=== PATIENT | male | born 2000 | race Caucasian/White ===

== ENCOUNTER 2021-10-15 11:26 | Emergency (ER) | payer OTHER, SELFPAY ==
[2021-10-15 11:35] VITALS: BP 116/72; PULSE 73; RESP 18; TEMP 36.2; O2SAT 99; BMI 31.9
--- NOTE | 2021-10-15 11:52 | CRLHL7_ITS ---
For Patients: As a result of the Cures Act, medical imaging exams and procedure reports are released immediately into your electronic medical record. You may view this report before your referring provider. If you have questions, please contact your health care provider. Indication: Pain over 4th metacarpal, trauma. Technique: Right hand 3 views. Comparison: None. Findings: There is an acute minimally displaced oblique fracture of the 4th metacarpal shaft. No definite extension to the articular surface. No dislocation. Joint spaces are preserved. Mild soft tissue swelling in the dorsal aspect of the hand. Impression: Acute minimally displaced oblique fracture of the 4th metacarpal shaft. Dictated by Aruna Lyn MD @ 10/15/2021 12:28:06 PM (Electronically Signed)
--- NOTE | 2021-10-15 12:56 | ED.GENADULT ---
HPI - General Adult General Chief complaint: Extremity Pain/Injury, Upper Stated complaint: Hand caught in drill, possibly broken Time Seen by Provider: 10/15/21 11:27 Source: patient Mode of arrival: ambulatory Limitations: no limitations History of Present Illness HPI narrative: 21-year-old male coming in today complaining of hand pain. Patient's hand was caught in a drill yesterday, the hand twisted and he felt immediate pain in the mid center of the hand. Denies any other injury. Related Data Home Medications Medication Instructions Recorded Confirmed cephalexin 500 mg capsule mg PO QID 09/07/21 09/07/21 None 10/15/21 Allergies Allergy/AdvReac Type Severity Reaction Status Date / Time No Known Allergies Allergy Unverified 10/15/21 11:40 Review of Systems Status of ROS: Reports: 6 or more systems reviewed and unremarkable except as noted in History and below [facility] Family History Paternal Grandmother Diabetes Maternal Grandmother Diabetes Social History Smoking Status: Never smoker Do you use any of these nicotine containing products: E-Cigarettes Second hand tobacco smoke exposure: No How often do you have a drink containing alcohol: 2-4 times a month How often do you have six or more drinks on one occasion: Less than monthly AUDIT-C Alcohol total score: 3 Non-prescribed substance use: denies use service: No Exam Narrative: Exam Narrative: Well-nourished well-developed patient in no acute distress. Alert and oriented. Answers questions appropriately. Mood and affect are appropriate. Thoughts are goal oriented and rational. No tangential or magical thinking noted. Patient speaks in full sentences without needing to catch their breath. HEENT: Normocephalic atraumatic. Pupils are equally round reactive to light. Extraocular muscles are intact. Conjunctivae are moist without any icterus noted. Patient's right hand has swelling on the dorsal surface. Volar surface appears normal. There is no redness, ecchymosis or broken skin. He has normal radial pulse. Full range of motion with all the fingers with extension and flexion. Full range of motion at the wrist however that causes discomfort in the center of the hand. He does have tenderness to palpation over the 4th metacarpal. Const: Vital Signs, click to edit/add: Vital Signs - 24 hr 10/15/21 11:35 Temperature 97.1 F L Pulse Rate [Right Pulse Oximeter] 73 Respiratory Rate 18 Blood Pressure [Le ft Upper Arm] 116/72 Pulse Oximetry 99 Oxygen Delivery Me thod Room Air Course Course Hospital Course: X-ray was obtained of the hand does show a fracture of the 4th metacarpal. Therefore patient was placed in a dorsal volar splint in the ED today. Vital Signs Vital signs: Initial Vital Signs Temperature 97.1 F L 10/15/21 11:35 Temperature Source Temporal Artery Scan 10/15/21 11:35 Pulse Rate 73 10/15/21 11:35 Pulse Rhythm 10/15/21 11:35 Respiratory Rate 18 10/15/21 11:35 Blood Pressure 116/72 10/15/21 11:35 Blood Pressure Mean 86 10/15/21 11:35 Blood Pressure Position Sitting 10/15/21 11:35 Pulse Oximetry 99 10/15/21 11:35 Oxygen Delivery Method 10/15/21 11:35 Vital Signs Temperature 97.1 F L 10/15/21 11:35 Pulse Rate 73 10/15/21 11:35 Respiratory Rate 18 10/15/21 11:35 Blood Pressure 116/72 10/15/21 11:35 Pulse Oximetry 99 10/15/21 11:35 Oxygen Delivery Method 10/15/21 11:35 Temperature 97.1 F L 10/15/21 11:35 Pulse Rate 73 10/15/21 11:35 Respiratory Rate 18 10/15/21 11:35 Blood Pressure 116/72 10/15/21 11:35 Pulse Oximetry 99 10/15/21 11:35 Oxygen Delivery Method 10/15/21 11:35 Medical Decision Making MDM Narrative Medical decision making narrative: 21-year-old male with a fracture of the 4th metacarpal. Splint was placed. He will be given a sling to use for comfort. He will follow-up with orthopedics next week for casting. This was not done today secondary to the amount of swelling present. Imaging Data Hand x-ray: Attestation: I have reviewed the pertinent imaging results. My impression: Fracture of the 4th metacarpal shaft Radiologist's impression: There is an acute minimally displaced oblique fracture of the 4th metacarpal shaft. No definite extension to the articular surface. No dislocation. Joint spaces are preserved. Mild soft tissue swelling in the dorsal aspect of the hand. Impression: Acute minimally displaced oblique fracture of the 4th metacarpal shaft. Discharge Plan Discharge Clinical Impression: Fracture of fourth metacarpal bone Patient Disposition: Home, Self-Care Condition: Stable Additional Instructions: Keep splint on at all times. Follow up with Orthopedics this coming week for casting. Okay to use ibuprofen or Tylenol as needed for discomfort. Prescriptions: No Action cephalexin 500 mg capsule PO QID Label Comments: forgets to take it regularly None Follow Up/Referrals: Provider,Not a Local [Primary Care Provider] - Stand Alone Forms: [employer] Info Instructions
== END 2021-10-15 13:55 | disposition home or self-care (01) ==
PROVIDERS: Emergency Provider Family Medicine
DX: S62.604A Fracture of unspecified phalanx of right ring finger, initial encounter for closed fracture (principal); W29.8XXA Contact with other powered hand tools and household machinery, initial encounter
CPT/HCPCS: 29130; 73130; 99283; 99284